=== PATIENT | female | born 1950 | race Caucasian/White ===

== ENCOUNTER 2023-04-21 13:30 | Outpatient (CLI) | payer MEDICARE, MEDICAID ==
[~2023-04-21] VITALS: Ht 170.2 cm; Wt 90.0 kg
[2023-04-21 13:35] VITALS: BP 151/72; O2SAT 97
[2023-04-21] MEDS ORDERED: methylPREDNISolone 1,000 MG, VIAL MATE ADAPTER 1 EACH in NS 250 ML IV ONE (14:00)
[2023-04-21 15:15] VITALS: BP 139/81; O2SAT 99
== END 2023-04-21 15:15 | disposition home or self-care (01) ==
LOC: M INFU 13:30
PROVIDERS: ATTEND Psychiatry & Neurology Neurology
DX: G35 Multiple sclerosis (principal); Z88.8 Allergy status to other drugs, medicaments and biological substances
CPT/HCPCS: 96365; J2930

== ENCOUNTER 2023-04-22 14:24 | Outpatient (CLI) | payer MEDICARE, MEDICAID ==
[~2023-04-22] VITALS: Ht 170.2 cm; Wt 90.0 kg
[2023-04-22] MEDS ORDERED: methylPREDNISolone 1,000 MG, VIAL MATE ADAPTER 1 EACH in NS 250 ML IV ONE (14:30)
[2023-04-22 15:01] VITALS: BP 166/77; O2SAT 98
[2023-04-22 16:04] VITALS: BP 154/76; O2SAT 99
== END 2023-04-22 16:00 | disposition home or self-care (01) ==
LOC: M INFU 14:24
PROVIDERS: ATTEND Psychiatry & Neurology Neurology
DX: G35 Multiple sclerosis (principal); Z88.8 Allergy status to other drugs, medicaments and biological substances
CPT/HCPCS: 96365; J2930

== ENCOUNTER 2023-04-23 13:33 | Outpatient (CLI) | payer MEDICARE, MEDICAID ==
[~2023-04-23] VITALS: Ht 170.2 cm; Wt 90.0 kg
[2023-04-23 13:40] VITALS: BP 153/70; O2SAT 98
[2023-04-23] MEDS ORDERED: methylPREDNISolone 1,000 MG, VIAL MATE ADAPTER 1 EACH in NS 250 ML IV ONE (14:00)
[2023-04-23 15:15] VITALS: BP 155/71; O2SAT 99
== END 2023-04-23 15:15 | disposition home or self-care (01) ==
LOC: M INFU 13:33
PROVIDERS: ATTEND Psychiatry & Neurology Neurology
DX: G35 Multiple sclerosis (principal); Z88.8 Allergy status to other drugs, medicaments and biological substances
CPT/HCPCS: 96365; J2930

== ENCOUNTER 2023-04-24 09:06 | Outpatient (CLI) | payer MEDICARE, MEDICAID ==
[~2023-04-24] VITALS: Ht 170.2 cm; Wt 91.4 kg
[2023-04-24 09:38] VITALS: BP 142/70; TEMP 97.3; O2SAT 98
[2023-04-24] MEDS ORDERED: methylPREDNISolone 1,000 MG, VIAL MATE ADAPTER 1 EACH in NS 250 ML IV ONE (10:00)
[2023-04-24 11:17] VITALS: BP 152/85; TEMP 96.9; O2SAT 99
== END 2023-04-24 11:25 | disposition home or self-care (01) ==
LOC: M OPCLI4PV 09:06 → M MSPAV 09:09 → M OPCLI4PV 11:25
PROVIDERS: ATTEND Psychiatry & Neurology Neurology
DX: G35 Multiple sclerosis (principal); Z88.8 Allergy status to other drugs, medicaments and biological substances
CPT/HCPCS: 96365; J2930

== ENCOUNTER 2023-04-25 11:05 | Outpatient (CLI) | payer MEDICARE, MEDICAID ==
[~2023-04-25] VITALS: Ht 170.2 cm; Wt 90.4 kg
[2023-04-25 11:25] VITALS: BP 157/70; O2SAT 98
[2023-04-25] MEDS ORDERED: methylPREDNISolone 1,000 MG, VIAL MATE ADAPTER 1 EACH in NS 250 ML IV ONE (12:00)
[2023-04-25 13:56] VITALS: BP 134/72; O2SAT 100
== END 2023-04-25 14:12 | disposition home or self-care (01) ==
LOC: M OPCLIPED 11:05 → M PED 11:09 → M OPCLIPED 14:12
PROVIDERS: ATTEND Psychiatry & Neurology Neurology
DX: G35 Multiple sclerosis (principal); Z88.8 Allergy status to other drugs, medicaments and biological substances
CPT/HCPCS: 96365; J2930

== ENCOUNTER → 2023-05-14 | Outpatient (REF) | payer MEDICARE, MEDICAID ==
[2023-05-14 17:38] LABS: APPEARANCE, URINE CLEAR (CLEAR); BACTERIA, URINE AUTO NEGATIVE (NEGATIVE); BILIRUBIN, URINE AUTO NEGATIVE (NEGATIVE); BLOOD, URINE BLOOD 2+ (NEGATIVE); COLOR, URINE YELLOW (YELLOW); GLUCOSE, URINE (UA) AUTO NEGATIVE (NEGATIVE); KETONE, URINE AUTO NEGATIVE (NEGATIVE); LEUKOCYTE ESTERASE, URINE AUTO 1+ (NEGATIVE); MUCUS, URINE SMALL (NEGATIVE); NITRITE, URINE AUTO NEGATIVE (NEGATIVE); PROTEIN, URINE AUTO NEGATIVE (NEGATIVE); RBC, URINE AUTO 4 /HPF (0-3); SPECIFIC GRAVITY URINE AUTO 1.016 (1.002-1.035); SQUAMOUS EPITHELIAL CELL UR AU 1 /HPF (0-6); WBC, URINE AUTO 10 /HPF (0-3)
== END ==
LOC: M SMT 16:50
PROVIDERS: ATTEND Specialist
DX: R33.9 Retention of urine, unspecified (principal)

== ENCOUNTER → 2024-01-12 | Outpatient (REF) | payer MEDICARE, MEDICAID ==
[2024-01-12 18:09] LABS: APPEARANCE, URINE HAZY (CLEAR); BACTERIA, URINE AUTO 1+ (NEGATIVE); BILIRUBIN, URINE AUTO NEGATIVE (NEGATIVE); BLOOD, URINE BLOOD 1+ (NEGATIVE); COLOR, URINE YELLOW (YELLOW); GLUCOSE, URINE (UA) AUTO NEGATIVE (NEGATIVE); KETONE, URINE AUTO NEGATIVE (NEGATIVE); LEUKOCYTE ESTERASE, URINE AUTO 1+ (NEGATIVE); NITRITE, URINE AUTO NEGATIVE (NEGATIVE); PROTEIN, URINE AUTO NEGATIVE (NEGATIVE); RBC, URINE AUTO 4 /HPF (0-3); SPECIFIC GRAVITY URINE AUTO 1.003 (1.002-1.035); SQUAMOUS EPITHELIAL CELL UR AU 0 /HPF (0-6); UROBILINOGEN, URINE AUTO 0.2 mg/dL (0.0-2.0); WBC, URINE AUTO 4 /HPF (0-3)
== END ==
LOC: M SMT 17:04
PROVIDERS: ATTEND Specialist
DX: N39.0 Urinary tract infection, site not specified (principal)

== ENCOUNTER → 2024-06-27 | Outpatient (REF) | payer MEDICARE, MEDICAID, OTHER | LOC: M LAB REF 12:50 | PROVIDERS: ATTEND Internal Medicine Critical Care Medicine | DX: R19.7 Diarrhea, unspecified (principal); Z79.899 Other long term (current) drug therapy ==

== ENCOUNTER → 2024-08-05 | Outpatient (CLI) | payer MEDICARE, MEDICAID | LOC: M SLEEP 20:00 | PROVIDERS: ATTEND Internal Medicine Critical Care Medicine | DX: G47.30 Sleep apnea, unspecified (principal) ==

== ENCOUNTER → 2024-08-08 | Outpatient (REF) | payer MEDICARE, MEDICAID | LOC: M LAB REF 12:39 | PROVIDERS: ATTEND Ophthalmology | DX: D23.111 Other benign neoplasm of skin of right upper eyelid, including canthus (principal) ==